=== PATIENT | male | born 1960 | race Two or more races ===

== ENCOUNTER 2017-01-13 15:24 | Emergency (ER) | payer OTHER ==
[~2017-01-13] VITALS: Ht 167.6 cm; Wt 81.6 kg
[2017-01-13] MEDS ORDERED: JANUMET 50-5001 EACH ORAL (15:42)
[2017-01-13] MEDS ORDERED: Ketorolac 30mg Inj IM ONE (16:00)
[2017-01-13] MEDS ORDERED: Norco 5mg/325mg tab ORAL ONE (16:00)
[2017-01-13] MEDS ORDERED: NORCO 5-325 TA1 EACH ORAL (18:19)
[2017-01-13] MEDS ORDERED: IBUPROFEN600 MG ORAL (18:19)
[2017-01-13 18:25] VITALS: BP 139/83
--- NOTE | 2017-01-13 18:58 | Emergency Room Report ---
History of Present Illness General Chief Complaint: Lower Back Pain or Injury Source: Patient Present Illness HPI 56-year-old male presents ED complaining of back pain. States that 10 days ago he had mechanical trip and fall landing on his back. States he's had persistent pain since then. Pain is throbbing, 10 out of 10, localized lower back, nonradiating. Denies any bowel or bladder incontinence. Denies any leg or motor weakness. No other aggravating or relieving factors. Denies any other associated symptoms Allergies: Coded Allergies: No Known Allergies (Unverified , 01/13/17) Patient History Past Medical History: DM Past Surgical History: none Pertinent Family History: none Social History: Denies: smoking, alcohol use, drug use Immunizations: UTD Reviewed Nursing Documentation: PMH: Agreed, PSxH: Agreed Nursing Documentation-PMH Past Medical History: No History, Except For Hx Diabetes: Yes Review of Systems All Other Systems: negative except mentioned in HPI Physical Exam Vital Signs Date Time Temp Pulse Resp B/P (MAP) Pulse Ox O2 Delivery O2 Flow Rate FiO2 01/13/17 15:34 97.5 78 18 147/83 99 Room Air Sp02 EP Interpretation: reviewed, normal General Appearance: alert, GCS 15, non-toxic, mild distress Head: normocephalic Eyes: bilateral eye normal inspection, bilateral eye PERRL ENT: normal ENT inspection Neck: normal inspection Respiratory: normal inspection Cardiovascular #1: normal inspection Gastrointestinal: normal bowel sounds, non tender, soft, non-distended, no guarding, no rebound Rectal: deferred Genitourinary: vertebral tenderness Musculoskeletal: back normal, gait/station normal, normal range of motion, non- tender Neurologic: alert, oriented x3, responsive, motor strength/tone normal, sensory intact, speech normal Psychiatric: normal inspection Skin: normal inspection Lymphatic: normal inspection Medical Decision Making Diagnostic Impression: Primary Impression: Closed fracture of lumbar vertebral body ER Course Hospital Course 56-year-old M presents to ED complaining of persistent back pain s/p trip and fall x 1 week Differential diagnoses include: Fracture, dislocation, sprain, contusion Clinical course Patient placed on stretcher. After initial history and physical, I ordered pain medications and CT L spine CT shows L1 compression fx with approximately 25% height loss. no retropulsion On reassessment pain is improved. Patient ambulating without difficulty. No focal deficits. I believe patient be safely discharged home with outpatient followup and appropriate pain management Diagnosis - close fx of lumbar vertebral body Stable and discharged to home with prescription for Motrin, [place]. weight bear as tolerated. Followup with PMD. Return to ED if symptoms recur or worsen CT/MRI/US Diagnostic Results CT/MRI/US Diagnostic Results : Imaging Test Ordered: CT L spine Impression Acute mild L1 superior endplate compression deformity with approximately 25-35% loss of height. No associated retropulsion. Last Vital Signs Date Time Temp Pulse Resp B/P (MAP) Pulse Ox O2 Delivery O2 Flow Rate FiO2 01/13/17 15:34 97.5 78 18 147/83 99 Room Air Status: improved Disposition: HOME, SELF-CARE Condition: Stable Scripts Hydrocodone Bit/Acetaminophen 5-325* (NORCO 5-325*) 1 Each Tablet 1 TAB ORAL Q6H Y for For Pain, #10 TAB 0 Refills Prov: RIGO BARRERA M.D. 01/13/17 Ibuprofen* (MOTRIN*) 600 Mg Tablet 600 MG ORAL Q8H Y for For Pain, #30 TAB 0 Refills Prov: RIGO BARRERA M.D. 01/13/17 Patient Instructions: Vertebral Fracture, [id number] RIGO BARRERA M.D. Jan 13, 2017 18:58
--- NOTE | 2017-01-14 09:50 | Diagnostic Imaging Report ---
Indications: PAIN, fall 10 days ago has been having left-sided pain since then Technique: Spiral acquisitions obtained through the lumbar spine. Multiplanar reconstructions were generated. No IV contrast utilized. Total dose length product 61 mGycm. CTDIvol(s) 18 mGy. Dose reduction achieved using automated exposure control Comparison: None Findings: There is a compression deformity, mostly anterior, of the L1 vertebral body. There is slight loss of height anteriorly and considerable superior endplate depression anteriorly. Axial images suggest the presence of a discrete fracture lines, and there is slight soft tissue swelling surrounding the vertebral body. The posterior wall is intact. The remaining vertebral body heights are preserved. No other acute fractures or dislocations. Bony alignment is normal. The disc spaces are preserved. There are suggestive old healed fracture deformities of the left L2 and L3 transverse processes. Circumferential annular bulge is seen at L2-3, L3-4, and L4-5, which do not appear significant compromise the spinal canal or neural foramina. Within the sacral spinal canal, there is a mass lesion which is ill-defined, measures approximately 2 x 1.5 cm, fills most of the spinal canal extends to the left of midline, and demonstrates fluid attenuation. 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 The included extraspinal soft tissues are unremarkable Impression: L1 anterior compression fracture. Suspect acute. No associated retropulsion. 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 MRI would likewise be useful for evaluation of this. This was not reported on the [facility] preliminary report. Dr. Parks in the emergency room notified at the time of interpretation This agrees with the preliminary interpretation provided overnight by [facility]. The CT scanner at [facility] is accredited by the [employer] and the scans are performed using protocols designed to limit radiation exposure to as low as reasonably achievable to attain images of sufficient resolution adequate for diagnostic evaluation.
== END 2017-01-13 18:25 | disposition home or self-care (01) ==
LOC: EMR 16:18
DX: S32.019A Unspecified fracture of first lumbar vertebra, initial encounter for closed fracture (principal); W01.0XXA Fall on same level from slipping, tripping and stumbling without subsequent striking against object, initial encounter; Y92.89 Other specified places as the place of occurrence of the external cause; E11.9 Type 2 diabetes mellitus without complications; M47.816 Spondylosis without myelopathy or radiculopathy, lumbar region
CPT/HCPCS: 72131; 96372; 99284; J1885